=== PATIENT | female | born 1940 | race Two or more races ===

== ENCOUNTER 2020-10-21 09:59 | Outpatient (CLI) | payer OTHER | END 2020-10-21 10:04 | disposition home or self-care (01) | LOC: RX STUDY 09:59 | PROVIDERS: ATTEND Internal Medicine | DX: R13.19 Other dysphagia (principal) ==

== ENCOUNTER 2020-11-07 09:41 | Outpatient (CLI) | payer OTHER | END 2020-11-07 09:42 | disposition home or self-care (01) | LOC: NUCLEAR 09:41 | PROVIDERS: ATTEND Internal Medicine Pulmonary Disease | DX: I26.99 Other pulmonary embolism without acute cor pulmonale (principal); I27.82 Chronic pulmonary embolism | CPT/HCPCS: 78582; A9540 ==